=== PATIENT | male | born 1955 | race Caucasian/White ===

== ENCOUNTER 2022-10-24 09:13 | Emergency (ER) | payer BC, MEDICARE, SELFPAY ==
--- NOTE | 2022-10-26 20:02 | ED_ITS ---
HPI - CPR General Chief Complaint: Cardiac Arrest/CPR Stated Complaint: [facility] Time Seen by Provider: 10/24/22 09:14 Source: EMS and RN notes reviewed Mode of arrival: EMS Limitations: clinical condition (pt was in extremis and undergoing cardiopulmonary resuscitation via ACLS protocol.) History of Present Illness MD complaint: collapsed during rest (pt fell out of bed at home and stopped breathing x this AM.) Onset (ago): minute(s) (30) Timing confirmed by: spouse Place: home Bystander CPR performed: No Initial findings in the field: unresponsive, no respirations, agonal and no pulse ROSC in the field: No Associated injuries: No Associated symptoms: other (unknown) Treatments prior to arrival: other airway device, chest compressions, epinephrine mgs # and sodium bicarbonate Review of Systems Review of Systems: ROS unobtainable: Yes unobtainable due to medical condition Constitutional: Comments: Pt was in extremis with LMA oxygenation, chest compression and ACLS protocol meds during cardiac resuscitation. Eyes: Comments: Pupils were fixed and dilated. Cardiovascular: Comments: Asystole. Pulseless. Neurologic: Comments: Pt was . [facility], [facility] Past Medical History Medical History Cardiac arrest Exam Narrative: Pt was being oxygenated via LMA, chest compressions and ACLS meds were continuing. Pt was asystolic and pulseless. Pupils were fixed and dilated. Pt was . Course Course Emergency Course: Pt was in the ED. Vital Signs Vital signs: Vital Signs Oxygen Delivery Bag Valve Mask 10/24/22 09:15 Oxygen Delivery Bag Valve Mask 10/24/22 09:15 Critical Care Time Critical Care Time Critical Care Time: Yes Total Critical Care Time: 30 Discharge Plan Discharge Clinical Impression: Cardiac arrest Patient Disposition: Condition: Additional Instructions: Pt was in asystole with fixed dilated pupils and no response to chest compressions or ACLS protocol meds. Follow-up/Referrals: UNKNOWN,DOCTOR [Primary Care Provider] - Time of Disposition: :34
== END 2022-10-24 15:54 | disposition expired ==
PROVIDERS: Emergency Provider Emergency Medicine
DX: I46.9 Cardiac arrest, cause unspecified (principal)
CPT/HCPCS: 92950; 99285; J7030